=== PATIENT | male | born 1970 | race Two or more races ===

== ENCOUNTER 2024-03-14 17:37 | Inpatient (IN) | payer OTHER ==
[2024-03-14] VITALS (9 sets, daily range): BP systolic 156–209; BP diastolic 89–112; PULSE 54–60; RESP 18–19; TEMP 98
[~2024-03-14] VITALS: Ht 162.6 cm; Wt 90.0 kg
[~2024-03-14 17:37] MED LIST: CHOL25TA4 PO; CLON1PAT14 TD; DOCU-385 PO; FEXO-353 PO; FOLI0.8T22 PO; FURO80 PO; HYDR50TA36 PO; LEVO100 PO; NEBI5TAB11 PO; PANT-31 PO; PARI5VIA7 IVP; SEVE800T38 PO
[2024-03-14] MEDS ORDERED: ONDANSETRON HCL 4 MG/2 ML VIAL IVP ONE (18:00)
[2024-03-14] MEDS ORDERED: ACETAMINOPHEN 325 MG TABLET PO PRN (19:00)
[2024-03-14] MEDS ORDERED: ONDANSETRON HCL 4 MG/2 ML VIAL IVP PRN (19:00)
[2024-03-14] MEDS ORDERED: FOLIC ACID/VIT B COMPLEX AND C TABLET PO ONE (19:00)
[2024-03-14 19:09] LABS: BASOPHILS % (AUTO) 2.4 % (0.0-2.0); EOSINOPHILS % (AUTO) 2.2 % (1.0-6.0); HEMATOCRIT 30.8 % (41-53); HEMOGLOBIN 10.4 g/dL (13.5-17.5); LYMPHOCYTES # (AUTO) 0.8 K/uL (1.0-4.8); LYMPHOCYTES % (AUTO) 13.7 % (22.0-44.0); MEAN CORPUSCULAR HGB CONC 33.8 G/dL (31.0-37.0); MEAN CORPUSCULAR VOLUME 89 fL (80-100); MONOCYTES # (AUTO) 0.6 K/uL (0.1-1.0); MONOCYTES % (AUTO) 9.6 % (2.0-9.0); NEUTROPHILS # (AUTO) 4.4 K/uL (1.8-7.7); NEUTROPHILS % (AUTO) 72.1 % (40.0-70.0); PLATELET COUNT (AUTO) 138 K/uL (150-450); RED BLOOD CELL COUNT(AUTO) 3.46 MIL/uL (4.50-5.90); RED CELL DISTRIBUTION WIDTH 19.2 % (11.5-14.5); WHITE BLOOD COUNT (AUTO) 6.1 K/uL (4.5-11.0)
[2024-03-14 19:26] LABS: CALCIUM, TOTAL 9.5 mg/dL (8.8-10.5); CREATININE 8.05 mg/dL (0.60-1.30); POTASSIUM 4.9 mmol/L (3.5-5.1)
[2024-03-14 19:39] LABS: TROPONIN I-HIGH SENSITIVITY 294 ng/L (<76)
[2024-03-14 19:49] LABS: ALBUMIN 3.2 g/dL (3.4-5.0); BILIRUBIN,TOTAL 1.9 mg/dL (0.1-1.0); TOTAL PROTEIN, SERUM 7.9 g/dL (6.4-8.2)
[2024-03-14] MEDS ORDERED: DOCUSATE SODIUM 100 MG CAPSULE PO SCH (21:00)
[2024-03-14] MEDS ORDERED: NEBIVOLOL HCL 5 MG TABLET PO ONE (23:00)
[2024-03-14] MEDS ORDERED: ASPIRIN 81 MG CHEWABLE TABLET PO ONE (23:00)
[2024-03-15] MEDS ORDERED: HEPARIN SODIUM,PORCINE 5,000 UNITS/ML VIAL SQ SCH
[2024-03-15] MEDS ORDERED: LEVOTHYROXINE SODIUM 100 MCG TABLET PO SCH (06:30)
[2024-03-15] MEDS ORDERED: SEVELAMER CARBONATE 800 MG TABLET PO SCH (08:00)
[2024-03-15] MEDS ORDERED: PANTOPRAZOLE SODIUM 40 MG DR TABLET PO SCH (09:00)
[2024-03-15] MEDS ORDERED: FUROSEMIDE 80 MG TABLET PO SCH (09:00)
[2024-03-15] MEDS ORDERED: FEXOFENADINE HCL 60 MG TABLET PO SCH (09:00)
[2024-03-15] MEDS ORDERED: CHOLECALCIFEROL (VIT D3) 1,000 UNITS [25 MCG] TABLET PO SCH (09:00)
[2024-03-15] MEDS ORDERED: DOCUSATE SODIUM 100 MG CAPSULE PO SCH (09:00)
[2024-03-15] MEDS ORDERED: FOLIC ACID/VIT B COMPLEX AND C TABLET PO SCH (09:00)
[2024-03-15] MEDS ORDERED: HydrALAZINE HCL 50 MG TABLET PO SCH (09:00)
[2024-03-15] MEDS ORDERED: NEBIVOLOL HCL 5 MG TABLET PO SCH (21:00)
[2024-03-16] MEDS ORDERED: PARICALCITOL 5 MCG/1 ML VIAL IVP SCH (09:00)
[2024-03-21] MEDS ORDERED: CloNIDine 0.3 MG/24 HOUR PATCH TD SCH (09:00)
== END 2024-03-15 00:40 | disposition left against medical advice (07) | DRG 280 ==
LOC: EMS 17:37 → EDH 19:55
PROVIDERS: ADMIT Internal Medicine; ATTEND Internal Medicine
PROC: 5A1D70Z Performance of Urinary Filtration, Intermittent, Less than 6 Hours Per Day (ICD-10-PCS; principal; 2024-03-14)
DX: I13.2 Hypertensive heart and chronic kidney disease with heart failure and with stage 5 chronic kidney disease, or end stage renal disease (principal); N18.6 End stage renal disease; I21.4 Non-ST elevation (NSTEMI) myocardial infarction; I16.1 Hypertensive emergency; N25.81 Secondary hyperparathyroidism of renal origin; D69.6 Thrombocytopenia, unspecified; I50.9 Heart failure, unspecified; D63.1 Anemia in chronic kidney disease; Z53.29 Procedure and treatment not carried out because of patient's decision for other reasons; I48.91 Unspecified atrial fibrillation; Z82.71 Family history of polycystic kidney; Z87.891 Personal history of nicotine dependence; Z91.199 Patient's noncompliance with other medical treatment and regimen due to unspecified reason; Z99.2 Dependence on renal dialysis; Z79.899 Other long term (current) drug therapy; Z88.8 Allergy status to other drugs, medicaments and biological substances; Z91.018 Allergy to other foods; Z90.49 Acquired absence of other specified parts of digestive tract
CPT/HCPCS: 71045; 80053; 82550; 83690; 83880; 84484; 85025; 90935; 93005; 99285; G0378; 36415-L1; 36415-TC